=== PATIENT | female | born 1985 | race Caucasian/White ===

== ENCOUNTER 2016-07-05 15:33 | Emergency (ER) | payer SELFPAY ==
[~2016-07-05] VITALS: Ht 162.6 cm; Wt 52.3 kg
[~2016-07-05 15:33] MED LIST: FLEXERIL 1010 MG/TAB PO; LIDOCAINE HCL100 M1 MM; NAPROSYN500 MG PO; PHENERGAN 25 TA25 MG PO
[2016-07-05 15:38] VITALS: BP 155/73; TEMP 98.1
[2016-07-05] MEDS ORDERED: MULTI VITAMINS1 TAB PO (15:42)
[2016-07-05 17:12] VITALS: PULSE 81
[2016-07-05] MEDS ORDERED: NORCO 325 MG-51 TAB PO (17:13)
== END 2016-07-05 17:20 | disposition home or self-care (01) ==
LOC: COL.ER 15:33
DX: S46.912A Strain of unspecified muscle, fascia and tendon at shoulder and upper arm level, left arm, initial encounter (principal); S40.012A Contusion of left shoulder, initial encounter; W18.39XA Other fall on same level, initial encounter; Y92.007 Garden or yard of unspecified non-institutional (private) residence as the place of occurrence of the external cause
CPT/HCPCS: J1170

== ENCOUNTER 2018-02-21 06:49 | Emergency (ER) | payer SELFPAY ==
[~2018-02-21] VITALS: Ht 162.6 cm; Wt 59.1 kg
[~2018-02-21 06:49] MED LIST changes: +MULTI VITAMINS1 TAB PO; +NORCO 325 MG-51 TAB PO
[2018-02-21 06:54] VITALS: TEMP 98.7
[2018-02-21] MEDS ORDERED: AMITRIPTYLINE H50 M1 (07:12)
[2018-02-21] MEDS ORDERED: IBU800 M1 PO (07:13)
[2018-02-21] MEDS ORDERED: LYRICA 75MG CAP75 MG PO (07:13)
[2018-02-21 07:44] LABS: BASO # 0.1 (0.0-0.2); BASO % 0.5 % (0.0-2.0); EOS # 0.3 (0.0-0.7); GRAN # 10.6 (1.4-6.5); GRAN % 77.2 % (42.2-75.2); HEMATOCRIT 38.9 % (37.0-47.0); LYMPH # 1.6 (1.2-3.4); LYMPH % 11.8 % (20.0-51.0); MEAN CELL VOLUME 98 fl (80.0-100.0); MEAN CORPUSCULAR HEMOGLOBIN 33 pg (27.0-31.0); MEAN CORPUSCULAR HGB CONC 33 g/dl (33.0-37.0); MEAN PLATELET VOLUME 9.2 fl (7.4-10.4); MONO # 1.1 (0.1-0.6); PLATELET COUNT 233 K/mm3 (130-400); RED BLOOD COUNT 3.96 M/mm3 (4.10-5.30); REDCELL DISTRIBUTION WIDTH-CV 12.9 % (11.5-14.5)
[2018-02-21 07:49] LABS: MUCOUS Present /lpf; PH 6 (5-8); URINE APPEARANCE Hazy; URINE BACTERIA Rare /hpf; URINE BILIRUBIN Negative (NEGATIVE); URINE BLOOD 3+ (NEGATIVE); URINE COLOR Yellow; URINE GLUCOSE Negative (NEGATIVE); URINE KETONE Negative (NEGATIVE); URINE LEUKOCYTE ESTERASE 2+ (NEGATIVE); URINE NITRATE Positive (NEGATIVE); URINE PROTEIN(semi-quant) 2+ (NEGATIVE); URINE RBC >50 /hpf; URINE UROBILINOGEN Negative (NEGATIVE)
[2018-02-21 07:57] LABS: BILIRUBIN,TOTAL 0.3 mg/dL (0.0-1.0); C-REACTIVE PROTEIN 2.3 mg/dL (0.0-0.9); CREATININE, serum 0.71 mg/dL (0.52-1.25); POTASSIUM 4.2 mmol/L (3.4-5.0); TOTAL PROTEIN 7.1 gm/dL (6.4-8.2)
[2018-02-21 08:50] LABS: COLLECTION METHOD CATHETER
[2018-02-21 08:53] LABS: COLLECTION METHOD CLEAN CATCH
[2018-02-21 08:59] LABS: MUCOUS Present /lpf; PH 6 (5-8); URINE APPEARANCE Hazy; URINE BACTERIA Rare /hpf; URINE BILIRUBIN Negative (NEGATIVE); URINE BLOOD 1+ (NEGATIVE); URINE COLOR Yellow; URINE GLUCOSE Negative (NEGATIVE); URINE KETONE Negative (NEGATIVE); URINE LEUKOCYTE ESTERASE 1+ (NEGATIVE); URINE NITRATE Positive (NEGATIVE); URINE PROTEIN(semi-quant) 1+ (NEGATIVE); URINE RBC 20-50 /hpf; URINE UROBILINOGEN Negative (NEGATIVE)
[2018-02-21] MEDS ORDERED: NORCO 325 MG-51 TAB PO (09:09)
[2018-02-21] MEDS ORDERED: AMOXICILLIN 8751 TAB PO (09:09)
[2018-02-21 09:26] VITALS: BP 104/66; PULSE 84
[2018-02-23] MEDS ORDERED: MACROBID 1100 MG/CAP PO (11:03)
== END 2018-02-21 09:27 | disposition home or self-care (01) ==
LOC: COL.ER 06:49 → MEDICAL 08:17 → COL.ER 09:27
PROVIDERS: Family Medicine
DX: N30.00 Acute cystitis without hematuria (principal); M79.7 Fibromyalgia; Z98.51 Tubal ligation status
CPT/HCPCS: A4216; J0696; J1885; J2270; J2550; J7030

== ENCOUNTER 2019-08-03 12:37 | Emergency (ER) | payer SELFPAY ==
[~2019-08-03] VITALS: Ht 162.6 cm; Wt 50.0 kg
[~2019-08-03 12:37] MED LIST changes: +AMITRIPTYLINE H50 M1; +AMOXICILLIN 8751 TAB PO; +IBU800 M1 PO; +LYRICA 75MG CAP75 MG PO; +MACROBID 1100 MG/CAP PO
[2019-08-03 12:52] VITALS: TEMP 98
[2019-08-03 13:27] LABS: BASO # 0.1 (0.0-0.2); BASO % 0.6 % (0.0-2.0); EOS # 0.2 (0.0-0.7); GRAN # 6.1 (1.4-6.5); GRAN % 62.2 % (42.2-75.2); HEMATOCRIT 43.4 % (37.0-47.0); HEMOGLOBIN 14.6 g/dl (12.5-16.0); LYMPH # 2.8 (1.2-3.4); MEAN CELL VOLUME 98 fl (80.0-100.0); MEAN CORPUSCULAR HEMOGLOBIN 33 pg (27.0-31.0); MEAN CORPUSCULAR HGB CONC 34 g/dl (33.0-37.0); MEAN PLATELET VOLUME 9.5 fl (7.4-10.4); MONO # 0.7 (0.1-0.6); PLATELET COUNT 238 K/mm3 (130-400); RED BLOOD COUNT 4.42 M/mm3 (4.10-5.30); REDCELL DISTRIBUTION WIDTH-CV 13.7 % (11.5-14.5)
[2019-08-03 13:38] LABS: ALANINE AMINOTRANSFERASE 8 U/L (4-34); ALBUMIN 4.2 gm/dL (3.5-5.0); ALKALINE PHOSPHATASE 77 U/L (50-136); ANION GAP 9 mmol/L (7-16); AST,SGOT 21 U/L (15-37); BILIRUBIN,TOTAL 0.5 mg/dL (0.0-1.0); BLOOD UREA NITROGEN 11 mg/dL (7-17); CARBON DIOXIDE 22 mmol/L (22-30); CHLORIDE 107 mmol/L (98-107); CREATININE, serum 0.68 (0.52-1.25); GLUCOSE 76 mg/dL (74-106); POTASSIUM 3.9 mmol/L (3.4-5.0); SODIUM 137 mmol/L (137-145); TOTAL PROTEIN 7.6 gm/dL (6.4-8.2)
[2019-08-03 13:39] LABS: C-REACTIVE PROTEIN < 0.5 mg/dL (0.0-0.9)
[2019-08-03 13:48] LABS: TROPONIN-I < 0.012 ng/mL (0.000-0.035)
[2019-08-03] MEDS ORDERED: ALEVE 220MG220 MG PO (14:11)
[2019-08-03] MEDS ORDERED: EXCEDRIN1 TAB PO (14:11)
[2019-08-03] MEDS ORDERED: CBD OIL (14:11)
[2019-08-03] MEDS ORDERED: FLEXERIL 1010 MG/TAB PO (15:09)
[2019-08-03 16:28] VITALS: BP 134/92; PULSE 63
== END 2019-08-03 16:28 | disposition home or self-care (01) ==
LOC: COL.ER 12:37
PROVIDERS: Physician Assistant
DX: R07.89 Other chest pain (principal); M62.838 Other muscle spasm; F41.9 Anxiety disorder, unspecified; F17.210 Nicotine dependence, cigarettes, uncomplicated; Z98.51 Tubal ligation status; Z88.1 Allergy status to other antibiotic agents; Z88.8 Allergy status to other drugs, medicaments and biological substances
CPT/HCPCS: J1885; J2060

== ENCOUNTER 2019-10-09 09:15 | Emergency (ER) | payer SELFPAY ==
[~2019-10-09] VITALS: Ht 162.6 cm; Wt 51.4 kg
[~2019-10-09 09:15] MED LIST changes: +ALEVE 220MG220 MG PO; +CBD OIL; +EXCEDRIN1 TAB PO
[2019-10-09 09:19] VITALS: TEMP 98.2
[2019-10-09 09:39] LABS: COLLECTION METHOD CLEAN CATCH
[2019-10-09 09:41] LABS: BASO # 0.1 (0.0-0.2); BASO % 0.5 % (0.0-2.0); EOS # 0.1 (0.0-0.7); EOS % 0.8 % (0-4.0); GRAN % 71.1 % (42.2-75.2); HEMATOCRIT 47.7 % (37.0-47.0); HEMOGLOBIN 15.8 g/dl (12.5-16.0); LYMPH # 2.1 (1.2-3.4); LYMPH % 16.9 % (20.0-51.0); MEAN CELL VOLUME 98 fl (80.0-100.0); MEAN CORPUSCULAR HEMOGLOBIN 33 pg (27.0-31.0); MEAN CORPUSCULAR HGB CONC 33 g/dl (33.0-37.0); MEAN PLATELET VOLUME 9.6 fl (7.4-10.4); MONO # 1.3 (0.1-0.6); MONO % 10.4 % (1.7-9.3); PLATELET COUNT 226 K/mm3 (130-400); RED BLOOD COUNT 4.85 M/mm3 (4.10-5.30); REDCELL DISTRIBUTION WIDTH-CV 12.8 % (11.5-14.5)
[2019-10-09 09:54] LABS: MUCOUS Present /lpf; PH 6 (5-8); SQUAMOUS EPITHELIAL >50 /hpf; URINE APPEARANCE Turbid; URINE BACTERIA None Seen /hpf; URINE BILIRUBIN Negative (NEGATIVE); URINE BLOOD 1+ (NEGATIVE); URINE COLOR Yellow; URINE GLUCOSE Negative (NEGATIVE); URINE KETONE 2+ (NEGATIVE); URINE LEUKOCYTE ESTERASE Negative (NEGATIVE); URINE NITRATE Negative (NEGATIVE); URINE PROTEIN(semi-quant) 1+ (NEGATIVE); URINE RBC 0-2 /hpf; URINE UROBILINOGEN Negative (NEGATIVE)
[2019-10-09 09:55] LABS: ALANINE AMINOTRANSFERASE 14 U/L (4-34); ALBUMIN 4.8 gm/dL (3.5-5.0); ALKALINE PHOSPHATASE 76 U/L (50-136); ANION GAP 9 mmol/L (7-16); AST,SGOT 29 U/L (15-37); BILIRUBIN,TOTAL 0.6 mg/dL (0.0-1.0); BLOOD UREA NITROGEN 15 mg/dL (7-17); CALCIUM 9.7 mg/dL (8.4-10.2); CARBON DIOXIDE 21 mmol/L (22-30); CHLORIDE 107 mmol/L (98-107); CREATININE, serum 0.77 (0.52-1.25); GLUCOSE 95 mg/dL (74-106); LIPASE 122 U/L (23-300); POTASSIUM 4.2 mmol/L (3.4-5.0); SODIUM 136 mmol/L (137-145); TOTAL PROTEIN 8.4 gm/dL (6.4-8.2)
[2019-10-09 09:56] LABS: C-REACTIVE PROTEIN < 0.5 mg/dL (0.0-0.9)
[2019-10-09] MEDS ORDERED: CENTRUM CHEWAB1 EAC3 PO (10:53)
[2019-10-09] MEDS ORDERED: FIBER GUMMIES2.5 GM PO (10:54)
[2019-10-09] MEDS ORDERED: PROMETHAZINE12.5 M5 PO (11:15)
[2019-10-09 11:26] VITALS: BP 126/81; PULSE 52
== END 2019-10-09 11:30 | disposition home or self-care (01) ==
LOC: COL.ER 09:15
PROVIDERS: Physician Assistant
DX: K52.9 Noninfective gastroenteritis and colitis, unspecified (principal); K51.20 Ulcerative (chronic) proctitis without complications; M79.7 Fibromyalgia; F17.210 Nicotine dependence, cigarettes, uncomplicated; Z88.1 Allergy status to other antibiotic agents; Z79.82 Long term (current) use of aspirin; Z32.02 Encounter for pregnancy test, result negative
CPT/HCPCS: J1885; J2550; J7030; Q9967

== ENCOUNTER → 2019-10-12 | Outpatient (CLI) | payer SELFPAY ==
[~2019-10-12] MED LIST changes: +CENTRUM CHEWAB1 EAC3 PO; +FIBER GUMMIES2.5 GM PO; +PROMETHAZINE12.5 M5 PO
== END ==
LOC: COL.RAD 11:56
DX: R10.11 Right upper quadrant pain (principal); R19.7 Diarrhea, unspecified

== ENCOUNTER 2019-12-16 07:49 | Emergency (ER) | payer OTHER ==
[~2019-12-16] VITALS: Ht 162.6 cm; Wt 50.0 kg
[2019-12-16 07:56] VITALS: TEMP 98.7
[2019-12-16 08:38] LABS: COLLECTION METHOD CLEAN CATCH
[2019-12-16 08:48] LABS: BASO # 0.1 (0.0-0.2); BASO % 0.7 % (0.0-2.0); EOS # 0.3 (0.0-0.7); EOS % 2.6 % (0-4.0); GRAN # 6.7 (1.4-6.5); GRAN % 68.4 % (42.2-75.2); HEMATOCRIT 41.4 % (37.0-47.0); HEMOGLOBIN 13.6 g/dl (12.5-16.0); LYMPH % 19.8 % (20.0-51.0); MEAN CELL VOLUME 102 fl (80.0-100.0); MEAN CORPUSCULAR HEMOGLOBIN 33 pg (27.0-31.0); MEAN CORPUSCULAR HGB CONC 33 g/dl (33.0-37.0); MEAN PLATELET VOLUME 9.3 fl (7.4-10.4); MONO # 0.8 (0.1-0.6); PLATELET COUNT 264 K/mm3 (130-400); RED BLOOD COUNT 4.07 M/mm3 (4.10-5.30); REDCELL DISTRIBUTION WIDTH-CV 13.2 % (11.5-14.5)
[2019-12-16 08:59] LABS: ALANINE AMINOTRANSFERASE 22 U/L (4-34); ALBUMIN 4.4 gm/dL (3.5-5.0); ALKALINE PHOSPHATASE 59 U/L (50-136); ANION GAP 7 mmol/L (7-16); AST,SGOT 37 U/L (15-37); BILIRUBIN,TOTAL 0.3 mg/dL (0.0-1.0); BLOOD UREA NITROGEN 16 mg/dL (7-17); CALCIUM 8.8 mg/dL (8.4-10.2); CARBON DIOXIDE 27 mmol/L (22-30); CHLORIDE 106 mmol/L (98-107); CREATININE, serum 0.81 (0.52-1.25); GLUCOSE 91 mg/dL (74-106); LIPASE 297 U/L (23-300); POTASSIUM 4.3 mmol/L (3.4-5.0); SODIUM 140 mmol/L (137-145); TOTAL PROTEIN 7.3 gm/dL (6.4-8.2)
[2019-12-16 09:00] LABS: C-REACTIVE PROTEIN < 0.5 mg/dL (0.0-0.9)
[2019-12-16 09:10] LABS: PH 7 (5-8); URINE APPEARANCE Hazy; URINE BACTERIA None Seen /hpf; URINE BILIRUBIN Negative (NEGATIVE); URINE BLOOD 3+ (NEGATIVE); URINE COLOR Yellow; URINE GLUCOSE Negative (NEGATIVE); URINE KETONE Negative (NEGATIVE); URINE LEUKOCYTE ESTERASE Trace (NEGATIVE); URINE NITRATE Negative (NEGATIVE); URINE PROTEIN(semi-quant) 1+ (NEGATIVE); URINE RBC >50 /hpf; URINE UROBILINOGEN Negative (NEGATIVE)
[2019-12-16] MEDS ORDERED: PHENERGAN 25 TA25 MG PO (09:55)
[2019-12-16] MEDS ORDERED: CIPRO 500MG TA500 MG PO (09:55)
[2019-12-16 10:46] VITALS: BP 115/80; PULSE 78
== END 2019-12-16 10:55 | disposition home or self-care (01) ==
LOC: COL.ER 07:49
PROVIDERS: Nurse Practitioner Primary Care
DX: N39.0 Urinary tract infection, site not specified (principal); K52.9 Noninfective gastroenteritis and colitis, unspecified; F41.9 Anxiety disorder, unspecified; M79.7 Fibromyalgia; K58.9 Irritable bowel syndrome, unspecified; F17.210 Nicotine dependence, cigarettes, uncomplicated; Z88.1 Allergy status to other antibiotic agents; Z88.8 Allergy status to other drugs, medicaments and biological substances
CPT/HCPCS: J1885; J2550; J7030